=== PATIENT | male | born 1980 | race Caucasian/White ===

== ENCOUNTER 2017-04-26 14:20 | Emergency (ER) | payer OTHER ==
[2017-04-26 14:32] VITALS: RESP 18
[2017-04-26] MEDS ORDERED: ONDANSETRON 4 MG/2 ML VIAL IVP STA (14:37)
[2017-04-26] MEDS ORDERED: SODIUM CHLORIDE 0.9% 1,000 ML IV STA (14:37)
[2017-04-26] MEDS ORDERED: KETOROLAC 30 MG/ML 1 ML VIAL IVP STA (14:37)
[2017-04-26] MEDS ORDERED: HYDROmorphone 1 MG/ML 1 ML SYRINGE IVP STA (14:37)
--- NOTE | 2017-04-26 14:40 | ED ---
General Adult HPI - General Chief complaint: Abdominal Pain Stated complaint: poss kidney stone Time Seen by Provider: 04/26/17 14:34 Source: patient Mode of arrival: ambulatory Limitations: no limitations - History of Present Illness Initial comments: Patient is a 37-year-old male who presents emergency room today with chief complaint of right-sided gaze no pain. He does admit to a history kidney stone. He states this started approximately 1 AM. Admits to a pain started on the right side of the back radiating around to the front of the abdomen. States feeling nauseated. Since his experience similar symptoms in the past with kidney stones. He does admit to seen some hematuria. Does admit some pressure with voiding. He denies any other complaints or associated symptoms at this time. Patient denies any recent fever, chills, shortness of breath, chest pain, numbness or tingling, constipation or diarrhea, headaches or visual changes, or any other complaints. - Related Data Home Medications Medication Instructions Recorded Confirmed Primatene Otc 1 tab PO DAILY PRN 04/26/17 04/26/17 Previous Rx's Medication Instructions Recorded Ciprofloxacin HCl [Cipro] 500 mg PO Q12HR #20 day 04/26/17 Hydrocodone/Acetaminophen [Commack 1 each PO Q6HR PRN #20 tab 04/26/17 5-325] Ibuprofen [Motrin] 800 mg PO Q6HR #30 tab 04/26/17 Ondansetron Odt [Zofran ODT] 4 mg PO Q8HR PRN #20 tab 04/26/17 Tamsulosin [Flomax] 0.4 mg PO DAILY #10 cap 04/26/17 Allergies Allergy/AdvReac Type Severity Reaction Status Date / Time No Known Allergies Allergy Verified 04/26/17 15:12 Review of Systems ROS Statement: Those systems with pertinent positive or pertinent negative responses have been documented in the HPI. ROS Other: All systems not noted in ROS Statement are negative. Past Medical History Additional Past Medical History / Comment(s): kindey stones History of Any Multi-Drug Resistant Organisms: None Reported Past Surgical History: No Surgical Hx Reported Past Psychological History: No Psychological Hx Reported Smoking Status: Current every day smoker Past Alcohol Use History: Occasional Past Drug Use History: None Reported General Exam - General Exam Comments Initial Comments: General: The patient is awake and alert, in mild distress. Eye: Pupils are equal, round and reactive to light, extra-ocular movements are intact. No nystagmus. There is normal conjunctiva bilaterally. No signs of icterus. Ears, nose, mouth and throat: There are moist mucous membranes and no oral lesions. Neck: The neck is supple, there is no tenderness or JVD. Cardiovascular: There is a regular rate and rhythm. No murmur, rub or gallop is appreciated. Respiratory: Lungs are clear to auscultation, respirations are non-labored, breath sounds are equal. No wheezes, stridor, rales, or rhonchi. Gastrointestinal: Soft, non-distended, non-tender abdomen without masses or organomegaly noted. There is no rebound or guarding present. No CVA tenderness. Bowel sounds are unremarkable. Musculoskeletal: Normal ROM, no tenderness. Strength 5/5. Sensation intact. Pulses equal bilaterally 2+. Neurological: A&O x 3. CN II-XII intact, There are no obvious motor or sensory deficits. Coordination appears grossly intact. Speech is normal. Skin: Skin is warm and dry and no rashes or lesions are noted. Psychiatric: Cooperative, appropriate mood & affect, normal judgment. Limitations: no limitations Course Vital Signs 04/26/17 14:29 Temperature 97.0 F L Pulse Rate 78 Respiratory 18 Rate Blood Pressure 152/85 O2 Sat by Pulse 100 Oximetry Medical Decision Making - Medical Decision Making Case discussed in detail with attending physician Dr. Ba. Patient reexamined at this time shows no signs of distress resting comfortably. Lesions vital signs are stable. No fever. Patient's labs been reviewed does show an 18,000 white count. Patient's urinalysis shows large amount of blood but no sign of infection. CT does show a 4 mm stone in the right UVJ. There is signs for inflammation periuretal. Patient will be discharged home on antibiotics of ciprofloxacin is advised follow-up the family doctor next 1-2 days or urologist. Advised return here to the emergency room if there is any fever or increase or worsening of symptoms. Patient states understanding and is in agreement. - Lab Data Result diagrams: 04/26/17 15:08 04/26/17 15:08 Lab Results 04/26/17 04/26/17 04/26/17 Range/Units 15:08 15:08 15:08 WBC 18.1 H (3.8-10.6) k/uL RBC 4.86 (4.30-5.90) m/uL Hgb 15.5 (13.0-17.5) gm/dL Hct 45.5 (39.0-53.0) % MCV 93.6 (80.0-100.0) fL MCH 31.8 (25.0-35.0) pg MCHC 34.0 (31.0-37.0) g/dL RDW 12.8 (11.5-15.5) % Plt Count 291 (150-450) k/uL Neutrophils % 85 % Lymphocytes % 8 % Monocytes % 5 % Eosinophils % 1 % Basophils % 0 % Neutrophils # 15.3 H (1.3-7.7) k/uL Lymphocytes # 1.4 (1.0-4.8) k/uL Monocytes # 0.8 (0-1.0) k/uL Eosinophils # 0.2 (0-0.7) k/uL Basophils # 0.1 (0-0.2) k/uL Sodium 139 (137-145) mmol/L Potassium 4.4 (3.5-5.1) mmol/L Chloride 108 H (98-107) mmol/L Carbon Dioxide 21 L (22-30) mmol/L Anion Gap 10 mmol/L BUN 15 (9-20) mg/dL Creatinine 1.15 (0.66-1.25) mg/dL Est GFR (MDRD) Af Amer >60 (>60 ml/min/1.73 sqM) Est GFR (MDRD) Non-Af >60 (>60 ml/min/1.73 sqM) Glucose 110 H (74-99) mg/dL Calcium 9.6 (8.4-10.2) mg/dL Total Bilirubin 0.5 (0.2-1.3) mg/dL AST 22 (17-59) U/L ALT 32 (21-72) U/L Alkaline Phosphatase 85 (38-126) U/L Total Protein 7.1 (6.3-8.2) g/dL Albumin 4.5 (3.5-5.0) g/dL Urine Color Yellow Urine Appearance Clear (Clear) Urine pH 6.0 (5.0-8.0) Ur Specific [place] 1.034 (1.001-1.035) Urine Protein 1+ H (Negative) Urine Glucose (UA) Negative (Negative) Urine Ketones Trace H (Negative) Urine Blood Large H (Negative) Urine Nitrite Negative (Negative) Urine Bilirubin Negative (Negative) Urine Urobilinogen 2.0 (<2.0) mg/dL Ur Leukocyte Esterase Negative (Negative) Urine RBC >182 H (0-5) /hpf Urine WBC 3 (0-5) /hpf Ur Squamous Epith Cells <1 (0-4) /hpf Disposition Clinical Impression: Kidney stone on right side Disposition: HOME SELF-CARE Condition: Good Instructions: Kidney Stones (ED) Additional Instructions: Please use medication as discussed. Please follow-up with urology/family doctor in the next 2 days of symptoms have not improved. Please return to emergency room if the symptoms increase or worsen or for any other concerns. Prescriptions: Ciprofloxacin HCl [Cipro] 500 mg PO Q12HR #20 day Hydrocodone/Acetaminophen [Commack 5-325] 1 each PO Q6HR PRN #20 tab PRN Reason: Pain Ibuprofen [Motrin] 800 mg PO Q6HR #30 tab Ondansetron Odt [Zofran ODT] 4 mg PO Q8HR PRN #20 tab PRN Reason: Nausea Tamsulosin [Flomax] 0.4 mg PO DAILY #10 cap Referrals: None,Stated [Primary Care Provider] - 1-2 days Jennifer Bianchi MD [STAFF PHYSICIAN] - 1-2 days Tex Murray MD [STAFF PHYSICIAN] - 1-2 days Time of Disposition: 16:19
[2017-04-26 15:16] LABS: Basophils # (A) 0.1 k/uL (0-0.2); Basophils % (A) 0 %; CH 32.5; CHCM 34.9; Eosinophils # (A) 0.2 k/uL (0-0.7); Eosinophils % (A) 1 %; HCT 45.5 % (39.0-53.0); HDW 2.39; HGB 15.5 gm/dL (13.0-17.5); Luc % (Auto) 1; Lymphocytes # (A) 1.4 k/uL (1.0-4.8); Lymphocytes % (A) 8 %; MCH 31.8 pg (25.0-35.0); MCV 93.6 fL (80.0-100.0); Mean Platelet Volume 7.9; Monocytes # (A) 0.8 k/uL (0-1.0); Monocytes % (A) 5 %; Neutrophils # (A) 15.3 k/uL (1.3-7.7); Neutrophils % (A) 85 %; RBC 4.86 m/uL (4.30-5.90); RDW 12.8 % (11.5-15.5); WBC 18.1 k/uL (3.8-10.6); WBC (Perox) 17.46
[2017-04-26 15:23] LABS: Appearance,Urine Clear (Clear); Bilirubin,Urine Negative (Negative); Glucose,Urine (UA) Negative (Negative); Ketones,Urine Trace (Negative); Leukocyte Esterase,Urine Negative (Negative); Nitrite,Urine Negative (Negative); Particle Count 3707; Protein,Urine 1+ (Negative); RBC,Urine >182 /hpf (0-5); Specific Gravity,Urine 1.034 (1.001-1.035); Squamous Epithelial Cell,Urine <1 /hpf (0-4); UA Billing (MACRO vs. MICRO) MICRO; WBC,Urine 3 /hpf (0-5)
[2017-04-26 15:28] LABS: ALT 32 U/L (21-72); AST 22 U/L (17-59); Alkaline Phosphatase 85 U/L (38-126); Anion Gap 10 mmol/L; Blood Urea Nitrogen 15 mg/dL (9-20); Calcium 9.6 mg/dL (8.4-10.2); Carbon Dioxide 21 mmol/L (22-30); Chloride 108 mmol/L (98-107); Glucose 110 mg/dL (74-99); Non-African American GFR(MDRD) >60 (>60 ml/min/1.73 sqM); Potassium 4.4 mmol/L (3.5-5.1); Sodium 139 mmol/L (137-145); Total Bilirubin 0.5 mg/dL (0.2-1.3); Total Protein 7.1 g/dL (6.3-8.2)
--- NOTE | 2017-04-26 16:02 | XR ---
EXAMINATION TYPE: XR KUB DATE OF EXAM: 04/26/2017 COMPARISON: 02/17/2013 INDICATION: Pain TECHNIQUE: Single view abdomen upright FINDINGS: Nonspecific small bowel gas and colonic bowel gas is present. Psoas margins are normal. No organomegaly is present. No suspicious calcifications are evident. Significant interval change is not evident. IMPRESSION: 1. Nonspecific abdomen
--- NOTE | 2017-04-26 16:07 | CT ---
EXAMINATION TYPE: CT abdomen pelvis wo con DATE OF EXAM: 04/26/2017 COMPARISON: NONE INDICATION: Rt flank pain, history of Rt sided stone DLP: 462 mGycm, Automated exposure control for dose reduction was used. CONTRAST: None Study performed without Oral Contrast TECHNIQUE: Axial images were obtained from above the diaphragm to the pubic rami in the axial plane a t 5 mm thick sections. Reconstructed images are reviewed on the computer in the coronal plane. FINDINGS: Limited CT sections are obtained the lung bases. The lung bases are clear. CT ABDOMEN: Liver: Normal Spleen: Normal Pancreas: Normal Adrenal glands: The adrenal glands are normal. Gallbladder: Normal Kidneys: No masses are evident. There is mild right hydronephrosis. Periureteral stranding is adjacen t to the proximal ureter right. There is mild right hydroureter. This extends to the pelvis. Just at the ureterovesical junction there is a 0.4 cm calcification may be a partially obstructing ureteral stone. Correlate with the patient's clinical symptoms. No cysts are present. Renal stones are not id entified. Aorta: Normal Inferior vena cava: Normal. CT PELVIS: Loops of bowel within the abdomen and pelvis are normal. Loops of bowel within the pelvis. Unrema rkable. Exam is limited lacking oral contrast. Appendix: Normal as visualized. A 0.5 cm appendicolith is present. No periappendiceal inflammatory ch anges are evident. There are a few scattered lymph nodes within the mesentery in the right midabdomen . Urinary bladder: Decompressed with limited evaluation. Genitourinary structures: Prostate is prominent contains calcification. Osseous structures: No suspicious lytic or sclerotic lesions. Some facet degenerative changes present L5-S1. IMPRESSIONS: 1. A 0.4 cm distal right ureteral vesicle junction stone. 2. Mild right hydroureter with periureteral inflammatory changes adjacent to the renal pelvis. 3. Appendicolith with an otherwise normal-appearing appendix. No dilated appendix or inflammatory angi nges are adjacent
[2017-04-26 16:33] VITALS: BP 138/56; PULSE 80; TEMP 98
== END 2017-04-26 16:29 | disposition home or self-care (01) ==
LOC: EC 14:20
DX: N20.0 Calculus of kidney (principal); F17.200 Nicotine dependence, unspecified, uncomplicated
CPT/HCPCS: 36415; 80053; 85025; 81001; 87086; 74000; 74176; 99284; 96374; 96375 ×2; 96361; J2405; J1885; J1170